=== PATIENT | female | born 1935 | race Caucasian/White ===

== ENCOUNTER 2017-10-13 16:42 | Emergency (ER) | payer MEDICARE, OTHER ==
--- NOTE | 2017-10-13 17:52 | EDM.PDOC ---
ED HPI GENERAL MEDICAL PROBLEM - General Chief Complaint: Upper Extremity Injury/Pain Stated Complaint: ARM INJURY FROM FALL Time Seen by Provider: 10/13/17 17:01 Source of Information: Reports: Patient, RN Notes Reviewed - History of Present Illness INITIAL COMMENTS - FREE TEXT/NARRATIVE: 82-year-old lady tripped and fell a short time ago on cement. She did catch herself with her hands but also did strike her face against the cement. She did suffer some abrasion injury to the distal nose and her chin. She denies major facial discomfort. She does not feel like anything is broken with her nose chin or face. There was some bleeding initially from her chin and distal nose but that has all stopped. No bleeding from within the mouth. No dental injury. No headache or LOC. Her major discomfort at this time is quite severe right hand discomfort most severe area of the MCPs for index and middle fingers. Her wrist is nontender. She did suffer abrasion to one of her knees but that is not giving her any difficulty at this time. No chest pain or difficulty breathing. Right Arm Pain Score (Numeric/FACES): 10 - Related Data Allergies Allergy/AdvReac Type Severity Reaction Status Date / Time DONNELL Inhibitors Allergy Rash Verified 10/13/17 16:55 atenolol Allergy Rash Verified 10/13/17 16:55 felodipine Allergy Rash Verified 10/13/17 16:55 guaifenesin [From Robitussin] Allergy Rash Verified 10/13/17 16:55 naproxen Allergy Rash Verified 10/13/17 16:55 verapamil Allergy Rash Verified 10/13/17 16:55 Home Meds: Home Meds Albuterol [Proventil HFA] PRN 10/13/17 [History] Aspirin 81 mg DAILY 10/13/17 [History] Beclomethasone Dipropionate [Qvar 40 Mcg] 80 mcg BID 10/13/17 [History] Biotin 10,000 mcg DAILY 10/13/17 [History] Calcium Carbonate [Calcium] 600 mg DAILY 10/13/17 [History] Diltiazem [Cardizem CD] 120 mg TID 10/13/17 [History] Fish Oil/[place]-3 Fatty Acids [Fish Oil 1,000 MG] 1,000 mg DAILY 10/13/17 [ History] Hydrocodone/Acetaminophen [Vicodin 5-300 mg Tablet] 5 - 300 mg PRN 10/13/17 [ History] Loratadine [Claritin] 10 mg BID 10/13/17 [History] Losartan [Cozaar] 100 mg DAILY 10/13/17 [History] Multivitamin [Multivitamins] DAILY 10/13/17 [History] Omeprazole 2 mg BID 10/13/17 [History] Tiotropium [Spiriva HandiHaler] 2 inhaler 10/13/17 [History] Ubidecarenone [Co Q-10] 300 mg DAILY 10/13/17 [History] Vit B Complx C/Folic Acid/Zinc [Renaplex Tablet] 10/13/17 [History] atorvaSTATin [Lipitor] 20 mg DAILY 10/13/17 [History] hydroCHLOROthiazide [Hydrochlorothiazide] 25 mg PO DAILY 10/13/17 [History] metFORMIN [Glucophage] 500 mg BID 10/13/17 [History] Review of Systems - Review of Systems Review Of Systems: See Below Eyes: Reports: No Symptoms Ears: Reports: No Symptoms Nose: Reports: Other (Abrasion injury distal nose) Mouth/Throat: Reports: No Symptoms Respiratory: Denies: Shortness of Breath Cardiovascular: Denies: Chest Pain GI/Abdominal: Denies: Abdominal Pain, Nausea, Vomiting Musculoskeletal: Reports: Joint Pain (MCP joints of right hand) Skin: Reports: Other (Abrasion injuries left knee right hand, chin and nose) Neurological: Denies: Numbness, Syncope, Tingling, Trouble Speaking ED EXAM, GENERAL - Physical Exam Exam: See Below General Appearance: Alert, No Apparent Distress Eye Exam: Bilateral Eye: PERRL Ears: Normal External Exam Nose: Other (Superficial abrasion injury distal nose, no bony tenderness, no deformity, no active bleeding) Throat/Mouth: Normal Inspection Head: Other (Superficial abrasion inferior chin, no bony tenderness, no active bleeding is otherwise nontender) Respiratory/Chest: No Respiratory Distress, Lungs Clear Cardiovascular: Regular Rate, Rhythm Extremities: Joint Swelling (MCP joints of the index and middle fingers right hand with moderate localized tenderness, no visible deformity) Neurological: Alert, Oriented, No Motor/Sensory Deficits Skin Exam: Warm, Dry, Normal Color Course - Vital Signs Last Recorded V/S: Last Vital Signs Temp 97.6 F 10/13/17 16:47 Pulse 76 10/13/17 16:47 Resp 20 10/13/17 16:47 BP 166/69 H 10/13/17 16:47 Pulse Ox 93 L 10/13/17 16:47 - Orders/Labs/Meds Orders: Active Orders 24 hr Category Date Time Status Hand Comp Min 3V Rt [CR] Stat Exams 10/13/17 17:23 Taken - Re-Assessments/Exams Free Text/Narrative Re-Assessment/Exam: 10/13/17 17:57 X-rays of hand show no fracture Departure - Departure Time of Disposition: 18:17 Disposition: Home, Self-Care 01 Condition: Fair Clinical Impression: Fall Qualifiers: Encounter type: initial encounter Qualified Code(s): W19.XXXA - Unspecified fall, initial encounter Hand contusion Qualifiers: Encounter type: initial encounter Laterality: right Qualified Code(s): S60.221A - Contusion of right hand, initial encounter Facial abrasion Qualifiers: Encounter type: initial encounter Qualified Code(s): S00.81XA - Abrasion of other part of head, initial encounter - Discharge Information Instructions: Hand Contusion, Abrasion, [id number] Referrals: PCP,Not In Area [Primary Care Provider] - Forms: ED Department Discharge Additional Instructions: Donnell wrap right hand, ice packs and elevation for swelling, take Vicodin every 6- 8 hours as previously prescribed for hand or other discomfort as needed. Antibiotic ointment to areas of abrasion 2-3 times daily as needed. Right hand discomfort should gradually resolve over the next 5-7 days. Have rechecked if not much better within 5-7 days as expected. - My Orders Last 24 Hours: My Active Orders 10/13/17 17:23 Hand Comp Min 3V Rt [CR] Stat - Assessment/Plan Last 24 Hours: My Active Orders 10/13/17 17:23 Hand Comp Min 3V Rt [CR] Stat
--- NOTE | 2017-10-14 10:05 | CR ---
Right hand: Four views of the right hand were obtained. Comparison: No previous study. Joint space narrowing is scattered within the DIP and PIP joints. Bony debris is seen off the PIP joint of the third digit and DIP of the second digit. Vascular calcification is noted. No acute fracture or other bony abnormality is seen. Impression: 1. Degenerative change as noted above. 2. Nothing acute is seen. Diagnostic code #2
== END 2017-10-13 18:58 | disposition home or self-care (01) ==
LOC: JD.ED 16:42
DX: S60.221A Contusion of right hand, initial encounter (principal); S00.81XA Abrasion of other part of head, initial encounter; S00.31XA Abrasion of nose, initial encounter; Z79.82 Long term (current) use of aspirin; Z79.899 Other long term (current) drug therapy; Z79.84 Long term (current) use of oral hypoglycemic drugs; Z88.8 Allergy status to other drugs, medicaments and biological substances; W22.8XXA Striking against or struck by other objects, initial encounter
CPT/HCPCS: 73130-26-RT; 73130-RT; 99283

== ENCOUNTER 2023-07-05 15:20 | Emergency (ER) | payer MEDICARE | END 2023-07-05 17:05 | disposition home or self-care (01) | LOC: JD.ED 15:20 | DX: S00.03XA Contusion of scalp, initial encounter (principal); I10 Essential (primary) hypertension; E78.00 Pure hypercholesterolemia, unspecified; J45.909 Unspecified asthma, uncomplicated; K21.9 Gastro-esophageal reflux disease without esophagitis; M19.90 Unspecified osteoarthritis, unspecified site; E11.9 Type 2 diabetes mellitus without complications; Z87.891 Personal history of nicotine dependence; Z79.82 Long term (current) use of aspirin; Z79.84 Long term (current) use of oral hypoglycemic drugs; Z79.899 Other long term (current) drug therapy; Z79.2 Long term (current) use of antibiotics; Z88.8 Allergy status to other drugs, medicaments and biological substances; W01.10XA Fall on same level from slipping, tripping and stumbling with subsequent striking against unspecified object, initial encounter | CPT/HCPCS: 70450; 70450-26; 99283; 99284 ==